=== PATIENT | male | born 1945 | race Caucasian/White ===

== ENCOUNTER 2016-09-01 17:06 | Emergency (ER) | payer OTHER ==
[2016-09-01 21:01] LABS: HEMOGLOBIN 12.3 gm/dl (14.0-17.5); RED BLOOD COUNT 4.12 M/UL (4.20-5.50); WHITE BLOOD COUNT 3.7 K/UL (4.5-11.0)
[2016-09-01 21:23] LABS: BUN/CREATININE RATIO 7 (0-10)
== END 2016-09-02 01:20 | disposition home or self-care (01) ==
LOC: ER1 17:06
PROVIDERS: Family Medicine
DX: R60.0 Localized edema (principal); F17.200 Nicotine dependence, unspecified, uncomplicated; Z88.0 Allergy status to penicillin; Z79.899 Other long term (current) drug therapy
CPT/HCPCS: 36415; 71020; 80053; 80307; 81001; 82140; 82550; 82553; 83874; 83880; 84443; 84484; 85025; 85379; 93005; 96360; 99285; G0480

== ENCOUNTER → 2016-11-05 | Outpatient (CLI) | payer OTHER | LOC: KOH-I 14:44 | DX: M54.5 Low back pain (principal); M51.36 Other intervertebral disc degeneration, lumbar region | CPT/HCPCS: 72110 ==